=== PATIENT | male | born 1930 | race Caucasian/White ===

== ENCOUNTER → 2016-10-12 | Outpatient (CLI) | payer MEDICARE, BC ==
[~2016-10-12] MED LIST: ALPRAZOLAM0.5 MG PO; AMIODARONE PO; AMOXICILLIN 8751 TAB PO; ANUSOL HC CREAM30 GM TOP; ARTIFICIAL TEARS OP; ATENOLOL50 MG PO; CARDIZEM CD120 M1 PO; CARDIZEM CD240 MG PO; CARDIZEM CD300 MG PO; CATAPRES 0.1MG0.1 MG PO; CLONIDINE0.2 MG PO; COUMADIN5 MG PO; COZAAR50 MG PO; DEMADEX 20MG20 M1 PO; DILTIAZEM CD180 MG PO; DITROPAN 5MG TAB5 MG PO; EFFER-K20 MEQ PO; FLOMAX 0.40.4 MG/CAP PO; GENTAMICIN EYE D5 ML OP; HYDROCORTISO28.35 G1 TP; HYZAAR 12.5 MG-1 TA1 PO; IMDUR30 MG PO; ISOSORBIDE MONO30 MG PO; K-DUR 10 MEQ T10 MEQ PO; LOSARTAN POTASS1 TA2 PO; METOLAZONE5 MG PO; MULTIPLE VITAMI1 CAP PO; NEXICLON X0.09 MG/ML; NITROSTAT0.4 MG/TAB SL; NORCO 325 MG-51 TAB PO; NORVASC 5MG5 MG/TAB PO; PERCOCET 325 MG1 TA2 PO; POTASSIUM CH2 MEQ/ML PO; POTASSIUM20 MEQ PO; PREDNISONE10 M1 PO; PREDNISONE10 MG PO; PRINVIL PO; PROTONIX20 M1 PO; Patient's Own Medication OP; RESTASIS 0.4 M0.4 M1 OU; ST. JOSEPH81 M2 PO; TEARS NATURALE15 M1 OU; TEARS-ARTIFICIA15 ML OU; TENORMIN50 M1 PO; TORSEMIDE20 MG PO; ZESTRIL20 MG PO; ZOCOR10 MG PO; ZOFRAN4 M1 SL; ZOVIRAX 800MG800 MG PO; [UNRECOGNIZED DRUG - OTHER] TP
== END ==
LOC: LAB 12:56
DX: I10 Essential (primary) hypertension (principal); I50.23 Acute on chronic systolic (congestive) heart failure

== ENCOUNTER → 2016-10-27 | Outpatient (CLI) | payer MEDICARE, BC | LOC: LAB 14:25 | DX: Z51.81 Encounter for therapeutic drug level monitoring (principal); Z79.01 Long term (current) use of anticoagulants; I48.0 Paroxysmal atrial fibrillation ==

== ENCOUNTER → 2016-11-11 | Outpatient (CLI) | payer MEDICARE, BC | LOC: LAB 09:53 | DX: I48.91 Unspecified atrial fibrillation (principal); I10 Essential (primary) hypertension; I50.23 Acute on chronic systolic (congestive) heart failure ==

== ENCOUNTER → 2016-11-22 | Outpatient (CLI) | payer MEDICARE, BC | LOC: LAB 09:42 | DX: Z51.81 Encounter for therapeutic drug level monitoring (principal); Z79.01 Long term (current) use of anticoagulants; I48.0 Paroxysmal atrial fibrillation ==

== ENCOUNTER → 2016-11-24 | Outpatient (CLI) | payer MEDICARE, BC | LOC: LAB 15:54 | DX: I48.0 Paroxysmal atrial fibrillation (principal); I50.23 Acute on chronic systolic (congestive) heart failure ==

== ENCOUNTER → 2016-12-01 | Outpatient (CLI) | payer MEDICARE, BC | LOC: LAB 10:27 | DX: I50.23 Acute on chronic systolic (congestive) heart failure (principal); I10 Essential (primary) hypertension ==

== ENCOUNTER → 2016-12-08 | Outpatient (CLI) | payer MEDICARE, BC | LOC: LAB 09:57 | DX: I50.23 Acute on chronic systolic (congestive) heart failure (principal); I10 Essential (primary) hypertension ==

== ENCOUNTER → 2016-12-22 | Outpatient (CLI) | payer MEDICARE, BC | LOC: LAB 14:05 | DX: I50.23 Acute on chronic systolic (congestive) heart failure (principal); I10 Essential (primary) hypertension ==

== ENCOUNTER → 2017-01-06 | Outpatient (CLI) | payer MEDICARE, BC | LOC: LAB 10:44 | DX: I50.23 Acute on chronic systolic (congestive) heart failure (principal); I10 Essential (primary) hypertension ==

== ENCOUNTER → 2017-02-14 | Outpatient (CLI) | payer MEDICARE, BC ==
[2016-09-08 23:59] VITALS: BP 166/98
== END ==
LOC: RAD 13:49
DX: M25.572 Pain in left ankle and joints of left foot (principal); M10.9 Gout, unspecified; N18.9 Chronic kidney disease, unspecified

== ENCOUNTER → 2017-05-26 | Outpatient (CLI) | payer MEDICARE, BC ==
[2016-09-08 23:59] VITALS: BP 166/98
== END ==
LOC: LAB 12:50
DX: I48.91 Unspecified atrial fibrillation (principal); R20.2 Paresthesia of skin; M25.572 Pain in left ankle and joints of left foot; M10.9 Gout, unspecified; B35.3 Tinea pedis

== ENCOUNTER → 2017-06-09 | Outpatient (CLI) | payer MEDICARE, BC ==
[2016-09-08 23:59] VITALS: BP 166/98
== END ==
LOC: RAD 15:00
DX: M25.572 Pain in left ankle and joints of left foot (principal); M25.472 Effusion, left ankle; M85.872 Other specified disorders of bone density and structure, left ankle and foot; M24.072 Loose body in left ankle

== ENCOUNTER 2017-06-14 08:48 | Emergency (ER) | payer MEDICARE, BC ==
[~2017-06-14 08:48] MED LIST changes: -GENTAMICIN EYE D5 ML OP; -PREDNISONE10 MG PO; -TENORMIN50 M1 PO; -[UNRECOGNIZED DRUG - OTHER] TP
[2017-06-14] MEDS ORDERED: [UNRECOGNIZED DRUG - OTHER] TP (09:31)
[2017-06-14] MEDS ORDERED: PREDNISONE10 MG PO (09:34)
[2017-06-14 10:14] VITALS: BP 184/120
[2017-06-14] MEDS ORDERED: TENORMIN50 M1 PO (10:15)
[2017-06-14] MEDS ORDERED: GENTAMICIN EYE D5 ML OP (10:15)
== END 2017-06-14 10:29 | disposition home or self-care (01) ==
LOC: ED 08:48
DX: I11.0 Hypertensive heart disease with heart failure (principal); I50.9 Heart failure, unspecified; H10.9 Unspecified conjunctivitis; I25.10 Atherosclerotic heart disease of native coronary artery without angina pectoris; Z87.891 Personal history of nicotine dependence; I48.91 Unspecified atrial fibrillation; Z79.01 Long term (current) use of anticoagulants; D64.9 Anemia, unspecified; M10.9 Gout, unspecified; K21.9 Gastro-esophageal reflux disease without esophagitis; G47.33 Obstructive sleep apnea (adult) (pediatric); R27.0 Ataxia, unspecified

== ENCOUNTER → 2017-06-22 | Outpatient (CLI) | payer MEDICARE, BC ==
[2017-06-14 10:14] VITALS: BP 184/120
[~2017-06-22] MED LIST changes: +GENTAMICIN EYE D5 ML OP; +PREDNISONE10 MG PO; +TENORMIN50 M1 PO; +[UNRECOGNIZED DRUG - OTHER] TP
== END ==
LOC: LAB 10:12
DX: M10.472 Other secondary gout, left ankle and foot (principal); B35.3 Tinea pedis; I48.0 Paroxysmal atrial fibrillation

== ENCOUNTER → 2017-07-07 | Outpatient (CLI) | payer MEDICARE, BC ==
[2017-06-14 10:14] VITALS: BP 184/120
== END ==
LOC: LAB 12:58
DX: I10 Essential (primary) hypertension (principal)

== ENCOUNTER → 2017-08-17 | Outpatient (CLI) | payer MEDICARE, BC ==
[2017-08-17 14:36] LABS: EOS # 0.1 (0.04-0.40); EOS % 1.5 % (0.0-4.0); HEMATOCRIT 48.4 % (42.0-52.0); HEMOGLOBIN 15.5 g/dL (13.5-18.0); MEAN CELL VOLUME 99 fl (78-100); MEAN CORPUSCULAR HEMOGLOBIN 32 pg (27-31); MEAN CORPUSCULAR HGB CONC 32 g/dL (33-37); MEAN PLATELET VOLUME 11.2 fl (7.4-10.4); MONO # 0.5 (0.20-0.80); NEU # 6.2 (1.40-6.50); PLATELET COUNT 168 K/mm3 (130-400); RED CELL DISTRIBUTION WIDTH 16.2 % (11.5-14.5); WHITE BLOOD COUNT 7.9 K/mm3 (4.8-10.8)
[2017-08-17 14:49] LABS: BUN/CREATININE RATIO 21.1 (6.0-26.0); CALCIUM 9.9 mg/dL (8.4-10.2); POTASSIUM 4.8 mmol/L (3.6-5.0)
== END ==
LOC: RAD 09:45
PROVIDERS: Internal Medicine Cardiovascular Disease
DX: I51.7 Cardiomegaly (principal); Z95.0 Presence of cardiac pacemaker

== ENCOUNTER 2017-09-30 15:17 | Emergency (ER) | payer MEDICARE, BC ==
[~2017-09-30] VITALS: Wt 103.0 kg
[~2017-09-30 15:17] MED LIST changes: +COUMADIN 5MG5 MG/TAB PO; -COUMADIN5 MG PO; +DEMADEX10 M1 PO; +EFFER-K 25 MEQ25 MEQ PO; -EFFER-K20 MEQ PO; +GUMMI BEAR MUL1 EACH; +ISOSORBIDE30 MG PO; -MULTIPLE VITAMI1 CAP PO; +ZOCOR10 M1 PO; -ZOCOR10 MG PO
[2017-09-30 16:02] LABS: HEMATOCRIT 44.2 % (42.0-52.0); HEMOGLOBIN 14.4 g/dL (13.5-18.0); MEAN CELL VOLUME 100 fl (78-100); MEAN CORPUSCULAR HEMOGLOBIN 32 pg (27-31); MEAN CORPUSCULAR HGB CONC 33 g/dL (33-37); MEAN PLATELET VOLUME 10.7 fl (7.4-10.4); PLATELET COUNT 144 K/mm3 (130-400); RED BLOOD COUNT 4.44 M/mm3 (4.20-5.60); RED CELL DISTRIBUTION WIDTH 15.3 % (11.5-14.5); WHITE BLOOD COUNT 7.3 K/mm3 (4.8-10.8)
[2017-09-30] MEDS ORDERED: COUMADIN 22.5 MG/TAB PO (16:10)
[2017-09-30 16:12] LABS: ALBUMIN 3.5 g/dL (3.5-5.0); BUN/CREATININE RATIO 22.9 (6.0-26.0); CALCIUM 9.4 mg/dL (8.4-10.2); POTASSIUM 4.9 mmol/L (3.6-5.0); TOTAL BILIRUBIN 0.7 mg/dL (0.2-1.3); TOTAL PROTEIN 6.6 g/dL (6.3-8.2)
[2017-09-30] MEDS ORDERED: ZYLOPRIM 100MG100 MG PO (16:12)
[2017-09-30 16:14] LABS: LYMPHOCYTE 13 % (20-51); MONOCYTE 2 % (3-10); NEUTROPHILS 85 % (42-75)
[2017-09-30] MEDS ORDERED: MEDROL4 M1 PO (16:14)
[2017-09-30 16:18] LABS: PROTHROMBIN TIME 33.6 SECONDS (9.0-12.0)
[2017-09-30] MEDS ORDERED: SLOW-MAG 106 MG1 ECT (16:18)
[2017-09-30 16:20] LABS: TROPONIN-I < 0.03 ng/mL (0.00-0.06)
[2017-09-30] MEDS ORDERED: TENORMIN100 MG PO (16:20)
[2017-09-30] MEDS ORDERED: RESTASIS 0.4 M0.4 M1 OU (16:20)
[2017-09-30] MEDS ORDERED: ALDACTONE 25MG25 MG PO (16:21)
[2017-09-30] MEDS ORDERED: AMLODIPINE BESYL5 MG PO (16:22)
[2017-09-30] MEDS ORDERED: MUCINEX 60600 MG/TA1 PO (16:25)
[2017-09-30] MEDS ORDERED: LOPERAMIDE2 M2 PO (16:25)
[2017-09-30] MEDS ORDERED: SYSTANE 0.3-0.415 ML OU (16:26)
[2017-09-30] MEDS ORDERED: ROBITUSSIN10 ML/CU1 PO (16:26)
[2017-09-30] MEDS ORDERED: XANAX0.5 M1 PO (16:27)
[2017-09-30] MEDS ORDERED: TYLENOL WITH CO1 TA1 PO (16:27)
[2017-09-30] MEDS ORDERED: TESSALON PERLE100 M1 PO (16:43)
[2017-09-30 17:15] VITALS: BP 155/89
== END 2017-09-30 17:17 | disposition home or self-care (01) ==
LOC: ED 15:17
PROVIDERS: Family Medicine
DX: I50.9 Heart failure, unspecified (principal); K21.9 Gastro-esophageal reflux disease without esophagitis; I48.91 Unspecified atrial fibrillation; Z79.01 Long term (current) use of anticoagulants; Z79.82 Long term (current) use of aspirin; J44.9 Chronic obstructive pulmonary disease, unspecified; Z86.711 Personal history of pulmonary embolism; G47.30 Sleep apnea, unspecified; G91.2 (Idiopathic) normal pressure hydrocephalus; Z95.5 Presence of coronary angioplasty implant and graft; I25.10 Atherosclerotic heart disease of native coronary artery without angina pectoris; Z98.2 Presence of cerebrospinal fluid drainage device; Z87.891 Personal history of nicotine dependence; M10.9 Gout, unspecified; Z88.8 Allergy status to other drugs, medicaments and biological substances

== ENCOUNTER → 2017-10-05 | Outpatient (CLI) | payer MEDICARE, BC ==
[2017-09-30 17:15] VITALS: BP 155/89
[~2017-10-05] MED LIST changes: +ALDACTONE 25MG25 MG PO; +AMLODIPINE BESYL5 MG PO; +COUMADIN 22.5 MG/TAB PO; +LOPERAMIDE2 M2 PO; +MEDROL4 M1 PO; +MUCINEX 60600 MG/TA1 PO; +ROBITUSSIN10 ML/CU1 PO; +SLOW-MAG 106 MG1 ECT; +SYSTANE 0.3-0.415 ML OU; +TENORMIN100 MG PO; +TESSALON PERLE100 M1 PO; +TYLENOL WITH CO1 TA1 PO; +XANAX0.5 M1 PO; +ZYLOPRIM 100MG100 MG PO
== END ==
LOC: RAD 12:11
DX: R13.10 Dysphagia, unspecified (principal)
CPT/HCPCS: G8997-GN

== ENCOUNTER → 2017-10-06 | Outpatient (CLI) | payer MEDICARE, BC ==
[2017-09-30 17:15] VITALS: BP 155/89
== END ==
LOC: RAD 08:26
DX: R93.8 Abnormal findings on diagnostic imaging of other specified body structures (principal); R91.8 Other nonspecific abnormal finding of lung field; I71.2 Thoracic aortic aneurysm, without rupture
CPT/HCPCS: Q9967

== ENCOUNTER → 2017-10-12 | Outpatient (CLI) | payer MEDICARE, BC ==
[2017-09-30 17:15] VITALS: BP 155/89
[2017-10-12 17:30] LABS: HEMATOCRIT 45.4 % (42.0-52.0); HEMOGLOBIN 14.4 g/dL (13.5-18.0); MEAN PLATELET VOLUME 10.6 fl (7.4-10.4); RED BLOOD COUNT 4.54 M/mm3 (4.20-5.60); RED CELL DISTRIBUTION WIDTH 14.5 % (11.5-14.5); WHITE BLOOD COUNT 7.7 K/mm3 (4.8-10.8)
[2017-10-12 20:23] LABS: BUN/CREATININE RATIO 17.3 (6.0-26.0); CALCIUM 9.4 mg/dL (8.4-10.2); POTASSIUM 4.5 mmol/L (3.6-5.0)
[2017-10-12 21:19] LABS: URINE APPEARANCE CLEAR; URINE COLOR DARK YELLOW
[2017-10-12 21:20] LABS: PH-URINE 5.5 (5.0 - 8.0); URINE BILIRUBIN NEGATIVE (NEGATIVE); URINE BLOOD NEGATIVE (NEGATIVE); URINE GLUCOSE NEGATIVE (NEGATIVE); URINE KETONE TRACE (NEGATIVE); URINE LEUKOCYTE ESTERASE NEGATIVE (NEGATIVE); URINE NITRATE NEGATIVE (NEGATIVE); URINE PROTEIN(semi-quant) TRACE mg/dL (NEGATIVE); URINE UROBILINOGEN NORMAL (NORMAL)
[2017-10-12 21:21] LABS: URINE MUCUS PRESENT (NOT PRESENT)
== END ==
LOC: LAB 17:00
PROVIDERS: Nurse Practitioner Family
DX: R53.81 Other malaise (principal); R06.02 Shortness of breath; I50.9 Heart failure, unspecified; R35.0 Frequency of micturition; Z88.8 Allergy status to other drugs, medicaments and biological substances

== ENCOUNTER 2017-11-01 14:35 | Outpatient (RCR) | payer MEDICARE, BC | END 2017-11-01 15:30 | disposition home or self-care (01) | LOC: SPEECH 14:35 | DX: R13.10 Dysphagia, unspecified (principal) | CPT/HCPCS: G8997-GN ==

== ENCOUNTER → 2018-02-01 | Outpatient (CLI) | payer MEDICARE, BC ==
[2018-02-01 11:38] LABS: EOS # 0.1 (0.04-0.40); EOS % 1.1 % (0.0-4.0); HEMATOCRIT 48.1 % (42.0-52.0); HEMOGLOBIN 15.6 g/dL (13.5-18.0); LYMPH# 0.9 (1.50-4.00); MEAN CELL VOLUME 100 fl (78-100); MEAN CORPUSCULAR HEMOGLOBIN 32 pg (27-31); MEAN CORPUSCULAR HGB CONC 32 g/dL (33-37); MEAN PLATELET VOLUME 10.5 fl (7.4-10.4); MONO # 0.6 (0.20-0.80); NEU # 5.7 (1.40-6.50); PLATELET COUNT 160 K/mm3 (130-400); RED BLOOD COUNT 4.83 M/mm3 (4.20-5.60); RED CELL DISTRIBUTION WIDTH 14.8 % (11.5-14.5); WHITE BLOOD COUNT 7.3 K/mm3 (4.8-10.8)
[2018-02-01 11:58] LABS: ALBUMIN 3.5 g/dL (3.5-5.0); BUN/CREATININE RATIO 21.9 (6.0-26.0); CALCIUM 9.3 mg/dL (8.4-10.2); POTASSIUM 4.5 mmol/L (3.6-5.0); TOTAL BILIRUBIN 0.5 mg/dL (0.2-1.3); TOTAL PROTEIN 6.7 g/dL (6.3-8.2)
[2018-02-01 13:11] LABS: ERYTHROCYTE SEDIMENTATION RATE 5 mm/hr (0-20)
[2018-02-01 23:09] LABS: TESTOSTERONE 391 ng/dL (221-716)
== END ==
LOC: LAB 11:17
PROVIDERS: Internal Medicine
DX: M10.9 Gout, unspecified (principal); E78.2 Mixed hyperlipidemia; Z12.5 Encounter for screening for malignant neoplasm of prostate; I48.0 Paroxysmal atrial fibrillation; I10 Essential (primary) hypertension; N52.9 Male erectile dysfunction, unspecified; Z88.8 Allergy status to other drugs, medicaments and biological substances

== ENCOUNTER → 2018-02-27 | Outpatient (CLI) | payer MEDICARE, BC ==
[2018-02-27 08:58] LABS: BUN/CREATININE RATIO 17.7 (6.0-26.0); CALCIUM 8.8 mg/dL (8.4-10.2); POTASSIUM 4.2 mmol/L (3.6-5.0)
== END ==
LOC: LAB 08:32
PROVIDERS: Internal Medicine Cardiovascular Disease
DX: Z01.89 Encounter for other specified special examinations (principal)

== ENCOUNTER 2018-03-08 21:42 | Emergency (ER) | payer MEDICARE, BC ==
[~2018-03-08] VITALS: Ht 182.9 cm; Wt 100.0 kg
[2018-03-08 23:16] VITALS: BP 124/86
== END 2018-03-08 23:16 | disposition home or self-care (01) ==
LOC: ED 21:42
DX: S51.811A Laceration without foreign body of right forearm, initial encounter (principal); W22.8XXA Striking against or struck by other objects, initial encounter; Z23 Encounter for immunization; Y92.129 Unspecified place in nursing home as the place of occurrence of the external cause; I10 Essential (primary) hypertension; I25.10 Atherosclerotic heart disease of native coronary artery without angina pectoris; G91.9 Hydrocephalus, unspecified; Z98.2 Presence of cerebrospinal fluid drainage device; Z86.711 Personal history of pulmonary embolism; Z79.01 Long term (current) use of anticoagulants; Z79.82 Long term (current) use of aspirin; Z87.891 Personal history of nicotine dependence; I48.91 Unspecified atrial fibrillation
CPT/HCPCS: 90715

== ENCOUNTER → 2018-03-12 | Outpatient (CLI) | payer MEDICARE, BC ==
[2018-03-08 23:16] VITALS: BP 124/86
[2018-03-12 14:00] LABS: BUN/CREATININE RATIO 18.7 (6.0-26.0); CALCIUM 9.6 mg/dL (8.4-10.2); POTASSIUM 4.5 mmol/L (3.6-5.0)
[2018-03-12 14:41] LABS: PROTHROMBIN TIME 21.2 SECONDS (9.0-12.0)
== END ==
LOC: LAB 13:04
PROVIDERS: Internal Medicine
DX: Z51.81 Encounter for therapeutic drug level monitoring (principal); Z79.01 Long term (current) use of anticoagulants; R53.83 Other fatigue

== ENCOUNTER 2018-03-15 13:22 | Emergency (ER) | payer MEDICARE, BC ==
[~2018-03-15] VITALS: Ht 177.8 cm; Wt 99.1 kg
[2018-03-15 15:44] LABS: EOS # 0.1 (0.04-0.40); EOS % 1.2 % (0.0-4.0); HEMATOCRIT 48.6 % (42.0-52.0); HEMOGLOBIN 15.8 g/dL (13.5-18.0); MEAN CELL VOLUME 100 fl (78-100); MEAN CORPUSCULAR HEMOGLOBIN 33 pg (27-31); MEAN CORPUSCULAR HGB CONC 33 g/dL (33-37); MEAN PLATELET VOLUME 10.9 fl (7.4-10.4); MONO # 0.6 (0.20-0.80); NEU # 4.4 (1.40-6.50); PLATELET COUNT 164 K/mm3 (130-400); RED BLOOD COUNT 4.84 M/mm3 (4.20-5.60); RED CELL DISTRIBUTION WIDTH 14.9 % (11.5-14.5); WHITE BLOOD COUNT 5.8 K/mm3 (4.8-10.8)
[2018-03-15 15:47] LABS: ALBUMIN 3.8 g/dL (3.5-5.0); BUN/CREATININE RATIO 16.7 (6.0-26.0); POTASSIUM 4.7 mmol/L (3.6-5.0); TOTAL BILIRUBIN 0.7 mg/dL (0.2-1.3); TOTAL PROTEIN 7.2 g/dL (6.3-8.2)
[2018-03-15 15:50] LABS: LYMPH# 0.7 (1.50-4.00)
[2018-03-15 15:52] LABS: PARTIAL THROMBOPLASTIN TIME 30.2 SECONDS (21.0-32.0); PROTHROMBIN TIME 20.6 SECONDS (9.0-12.0)
[2018-03-15 17:18] VITALS: BP 115/84
== END 2018-03-15 17:05 | disposition home or self-care (01) ==
LOC: ED 13:22
PROVIDERS: Physician Assistant
DX: S09.90XA Unspecified injury of head, initial encounter (principal); J06.9 Acute upper respiratory infection, unspecified; S00.93XA Contusion of unspecified part of head, initial encounter; W19.XXXA Unspecified fall, initial encounter; G91.9 Hydrocephalus, unspecified; Z98.2 Presence of cerebrospinal fluid drainage device; I48.91 Unspecified atrial fibrillation; I25.10 Atherosclerotic heart disease of native coronary artery without angina pectoris; I10 Essential (primary) hypertension; G47.33 Obstructive sleep apnea (adult) (pediatric); Z79.01 Long term (current) use of anticoagulants; Z99.81 Dependence on supplemental oxygen; Z79.899 Other long term (current) drug therapy

== ENCOUNTER → 2018-05-04 | Outpatient (CLI) | payer MEDICARE, BC ==
[2018-05-04 12:16] LABS: BUN/CREATININE RATIO 23.2 (6.0-26.0)
== END ==
LOC: LAB 11:14
PROVIDERS: Internal Medicine
DX: M10.9 Gout, unspecified (principal); R53.83 Other fatigue; R06.02 Shortness of breath; I50.9 Heart failure, unspecified

== ENCOUNTER → 2018-05-28 | Outpatient (CLI) | payer MEDICARE, BC | LOC: RAD 10:04 | DX: M79.661 Pain in right lower leg (principal); R22.41 Localized swelling, mass and lump, right lower limb ==

== ENCOUNTER → 2018-07-10 | Outpatient (CLI) | payer MEDICARE, BC ==
[~2018-07-10] VITALS: Ht 177.8 cm; Wt 102.3 kg
[~2018-07-10] MED LIST changes: +IMODIUM 2MG CAPS2 MG PO; +LANSOPRAZOLE30 MG PO; +LOTRISONE CREAM15 G1 TOP; +MAGNESIUM OXID400 MG PO; +NATURAL TEARS OU; +ROBAFEN100 MG/51 PO; +RT ALBUTEROL CC18 GM IH
[2018-07-10 11:12] LABS: EOS # 0.1 (0.04-0.40); EOS % 1.9 % (0.0-4.0); HEMATOCRIT 43.9 % (42.0-52.0); HEMOGLOBIN 14.2 g/dL (13.5-18.0); LYMPH# 1.2 (1.50-4.00); MEAN CELL VOLUME 101 fl (78-100); MEAN CORPUSCULAR HEMOGLOBIN 33 pg (27-31); MEAN CORPUSCULAR HGB CONC 32 g/dL (33-37); MEAN PLATELET VOLUME 10.7 fl (7.4-10.4); MONO # 0.6 (0.20-0.80); NEU # 3.7 (1.40-6.50); PLATELET COUNT 191 K/mm3 (130-400); RED BLOOD COUNT 4.35 M/mm3 (4.20-5.60); RED CELL DISTRIBUTION WIDTH 14.1 % (11.5-14.5); WHITE BLOOD COUNT 5.7 K/mm3 (4.8-10.8)
[2018-07-10 11:33] LABS: CALCIUM 9.4 mg/dL (8.4-10.2)
[2018-07-10 11:42] VITALS: BP 119/84
[2018-07-10 12:24] LABS: ERYTHROCYTE SEDIMENTATION RATE 25 mm/hr (0-20)
== END ==
LOC: AMSURD 10:54
PROVIDERS: Nurse Practitioner Family
DX: I77.810 Thoracic aortic ectasia (principal); I50.9 Heart failure, unspecified; R60.0 Localized edema

== ENCOUNTER 2018-07-13 11:30 | Emergency (ER) | payer MEDICARE, BC ==
[~2018-07-13] VITALS: Ht 182.9 cm; Wt 96.8 kg
[2018-07-13 12:33] LABS: EOS % 0.4 % (0.0-4.0); HEMATOCRIT 47.9 % (42.0-52.0); HEMOGLOBIN 16.1 g/dL (13.5-18.0); LYMPH# 1.8 (1.50-4.00); MEAN CELL VOLUME 97 fl (78-100); MEAN CORPUSCULAR HEMOGLOBIN 33 pg (27-31); MEAN CORPUSCULAR HGB CONC 34 g/dL (33-37); MEAN PLATELET VOLUME 11.6 fl (7.4-10.4); MONO # 0.9 (0.20-0.80); NEU # 5.7 (1.40-6.50); PLATELET COUNT 232 K/mm3 (130-400); RED BLOOD COUNT 4.93 M/mm3 (4.20-5.60); RED CELL DISTRIBUTION WIDTH 14.1 % (11.5-14.5); WHITE BLOOD COUNT 8.4 K/mm3 (4.8-10.8)
[2018-07-13 12:39] LABS: ALBUMIN 4.2 g/dL (3.5-5.0); CALCIUM 9.5 mg/dL (8.4-10.2); POTASSIUM 3.3 mmol/L (3.6-5.0); TOTAL BILIRUBIN 0.9 mg/dL (0.2-1.3); TOTAL PROTEIN 7.3 g/dL (6.3-8.2)
[2018-07-13 12:45] LABS: TROPONIN-I < 0.03 ng/mL (0.00-0.06)
[2018-07-13] MEDS ORDERED: LEVAQUIN 5500 MG/TA1 PO (12:52)
[2018-07-13] MEDS ORDERED: COUMADIN 5MG5 MG/TAB PO (12:57)
[2018-07-13 15:20] LABS: PH-URINE 6.5 (5.0 - 8.0); URINE APPEARANCE CLEAR; URINE BILIRUBIN NEGATIVE (NEGATIVE); URINE BLOOD NEGATIVE (NEGATIVE); URINE COLOR YELLOW; URINE GLUCOSE NEGATIVE (NEGATIVE); URINE KETONE NEGATIVE (NEGATIVE); URINE LEUKOCYTE ESTERASE NEGATIVE (NEGATIVE); URINE NITRATE NEGATIVE (NEGATIVE); URINE PROTEIN(semi-quant) NEGATIVE (NEGATIVE); URINE UROBILINOGEN NORMAL (NORMAL); URINE WBC 0-1 /hpf (0-3)
[2018-07-13 16:00] VITALS: BP 103/71
== END 2018-07-13 16:00 | disposition short-term general hospital (02) ==
LOC: ED 11:30
PROVIDERS: Nurse Practitioner Primary Care
DX: I63.9 Cerebral infarction, unspecified (principal); G81.91 Hemiplegia, unspecified affecting right dominant side; R40.2412 Glasgow coma scale score 13-15, at arrival to emergency department; A41.9 Sepsis, unspecified organism; J18.9 Pneumonia, unspecified organism; I48.91 Unspecified atrial fibrillation; I11.0 Hypertensive heart disease with heart failure; I50.9 Heart failure, unspecified; G47.33 Obstructive sleep apnea (adult) (pediatric); E78.5 Hyperlipidemia, unspecified; I25.10 Atherosclerotic heart disease of native coronary artery without angina pectoris; G91.2 (Idiopathic) normal pressure hydrocephalus; Z95.0 Presence of cardiac pacemaker; Z98.2 Presence of cerebrospinal fluid drainage device; R26.9 Unspecified abnormalities of gait and mobility; Z79.899 Other long term (current) drug therapy; Z79.01 Long term (current) use of anticoagulants
CPT/HCPCS: J1644; J1956; J7030

== ENCOUNTER 2018-07-17 12:43 | Inpatient (IN) | payer MEDICARE, BC ==
[~2018-07-17] VITALS: Ht 177.8 cm; Wt 97.0 kg
[~2018-07-17 12:43] MED LIST changes: +LEVAQUIN 5500 MG/TA1 PO
[2018-07-17 16:13] VITALS: BP 122/80
[2018-07-17 17:00] VITALS: BP 112/78
[2018-07-17 18:58] VITALS: BP 112/78
[2018-07-17] MEDS ORDERED: DELTASONE20 M1 PO (22:10)
[2018-07-17] MEDS ORDERED: RESTASIS 0.4 M0.4 M1 OU (22:11)
[2018-07-17] MEDS ORDERED: MIRALAX17 GM PO (22:11)
[2018-07-17 23:18] VITALS: BP 128/74
[2018-07-18 06:21] VITALS: BP 101/67
[2018-07-18 06:31] VITALS: BP 147/90
[2018-07-18 06:50] LABS: HEMATOCRIT 43.1 % (42.0-52.0); HEMOGLOBIN 14.7 g/dL (13.5-18.0); MEAN CELL VOLUME 98 fl (78-100); MEAN CORPUSCULAR HEMOGLOBIN 33 pg (27-31); MEAN CORPUSCULAR HGB CONC 34 g/dL (33-37); MEAN PLATELET VOLUME 11.3 fl (7.4-10.4); PLATELET COUNT 187 K/mm3 (130-400); RED BLOOD COUNT 4.42 M/mm3 (4.20-5.60); RED CELL DISTRIBUTION WIDTH 13.7 % (11.5-14.5); WHITE BLOOD COUNT 9.6 K/mm3 (4.8-10.8)
[2018-07-18 07:01] LABS: PROTHROMBIN TIME 26.5 SECONDS (9.0-12.0)
[2018-07-18 07:20] LABS: CALCIUM 9.1 mg/dL (8.4-10.2); POTASSIUM 3.5 mmol/L (3.6-5.0)
[2018-07-18 07:23] LABS: BAND 1 % (0-10); LYMPHOCYTE 13 % (20-51); MONOCYTE 4 % (3-10); NEUTROPHILS 82 % (42-75)
[2018-07-18 18:44] VITALS: BP 110/72
[2018-07-19 06:36] VITALS: BP 153/85
[2018-07-19 16:35] VITALS: BP 145/95
[2018-07-19 18:21] VITALS: BP 120/79
[2018-07-20 06:00] VITALS: BP 154/93
[2018-07-20 06:28] VITALS: BP 154/93
[2018-07-20 11:53] LABS: ALBUMIN 3.4 g/dL (3.5-5.0); CALCIUM 8.9 mg/dL (8.4-10.2); POTASSIUM 4.5 mmol/L (3.6-5.0); TOTAL BILIRUBIN 0.6 mg/dL (0.2-1.3); TOTAL PROTEIN 6.4 g/dL (6.3-8.2)
[2018-07-20 18:03] VITALS: BP 146/95
[2018-07-21 06:00] VITALS: BP 143/93
[2018-07-21 06:02] VITALS: BP 143/93
[2018-07-21 18:12] VITALS: BP 127/84
[2018-07-22 06:00] VITALS: BP 134/87
[2018-07-22 06:25] VITALS: BP 134/87
[2018-07-22 18:09] VITALS: BP 112/81
[2018-07-23 06:19] VITALS: BP 156/100
[2018-07-23 07:08] VITALS: BP 156/100
[2018-07-23 18:27] VITALS: BP 104/71
[2018-07-24 06:02] VITALS: BP 169/109
[2018-07-24 06:22] VITALS: BP 168/109
[2018-07-24 08:31] LABS: EOS # 0.1 (0.04-0.40); EOS % 2.3 % (0.0-4.0); HEMATOCRIT 42.9 % (42.0-52.0); HEMOGLOBIN 14.5 g/dL (13.5-18.0); LYMPH# 1.4 (1.50-4.00); MEAN CELL VOLUME 98 fl (78-100); MEAN CORPUSCULAR HEMOGLOBIN 33 pg (27-31); MEAN CORPUSCULAR HGB CONC 34 g/dL (33-37); MEAN PLATELET VOLUME 10.9 fl (7.4-10.4); MONO # 0.5 (0.20-0.80); PLATELET COUNT 165 K/mm3 (130-400); RED BLOOD COUNT 4.39 M/mm3 (4.20-5.60); RED CELL DISTRIBUTION WIDTH 13.9 % (11.5-14.5); WHITE BLOOD COUNT 6.1 K/mm3 (4.8-10.8)
[2018-07-24 08:32] LABS: ALBUMIN 3.3 g/dL (3.5-5.0); CALCIUM 9.1 mg/dL (8.4-10.2); POTASSIUM 5.1 mmol/L (3.6-5.0); TOTAL BILIRUBIN 0.9 mg/dL (0.2-1.3); TOTAL PROTEIN 6.2 g/dL (6.3-8.2)
[2018-07-24 12:51] LABS: PROTHROMBIN TIME 48.4 SECONDS (9.0-12.0)
[2018-07-24 18:25] VITALS: BP 116/78
[2018-07-25 06:00] VITALS: BP 124/81
[2018-07-25 06:20] VITALS: BP 124/81
[2018-07-25 18:23] VITALS: BP 123/82
[2018-07-26 06:17] VITALS: BP 119/73
[2018-07-26 10:09] LABS: PROTHROMBIN TIME 28.8 SECONDS (9.0-12.0)
[2018-07-26 18:53] VITALS: BP 106/72
[2018-07-27 06:21] VITALS: BP 108/68
[2018-07-27 07:58] LABS: PROTHROMBIN TIME 22.9 SECONDS (9.0-12.0)
[2018-07-27 18:18] VITALS: BP 113/73
[2018-07-28 06:23] VITALS: BP 120/78; BP 99/63
[2018-07-28 18:12] VITALS: BP 135/84
[2018-07-29 05:50] VITALS: BP 92/62
[2018-07-29 06:37] VITALS: BP 122/72
[2018-07-29 18:51] VITALS: BP 123/84
[2018-07-30 06:14] VITALS: BP 114/77
[2018-07-30 06:15] VITALS: BP 114/77
[2018-07-30 18:22] VITALS: BP 119/87
[2018-07-31 06:18] VITALS: BP 132/89
[2018-07-31 06:21] VITALS: BP 132/89
[2018-07-31 09:37] LABS: EOS # 0.2 (0.04-0.40); EOS % 3.1 % (0.0-4.0); HEMATOCRIT 46.9 % (42.0-52.0); HEMOGLOBIN 14.8 g/dL (13.5-18.0); LYMPH# 0.8 (1.50-4.00); MEAN CELL VOLUME 100 fl (78-100); MEAN CORPUSCULAR HEMOGLOBIN 32 pg (27-31); MEAN CORPUSCULAR HGB CONC 32 g/dL (33-37); MEAN PLATELET VOLUME 10.7 fl (7.4-10.4); MONO # 0.3 (0.20-0.80); NEU # 4.5 (1.40-6.50); PLATELET COUNT 184 K/mm3 (130-400); RED CELL DISTRIBUTION WIDTH 14.1 % (11.5-14.5); WHITE BLOOD COUNT 5.9 K/mm3 (4.8-10.8)
[2018-07-31 09:43] LABS: ALBUMIN 3.6 g/dL (3.5-5.0); CALCIUM 9.4 mg/dL (8.4-10.2); POTASSIUM 4.5 mmol/L (3.6-5.0); TOTAL PROTEIN 6.7 g/dL (6.3-8.2)
[2018-07-31 10:02] LABS: PROTHROMBIN TIME 17.5 SECONDS (9.0-12.0)
[2018-07-31] MEDS ORDERED: COUMADIN 5MG5 MG/TAB PO (12:34)
[2018-07-31] MEDS ORDERED: ISOSORBIDE30 MG PO (12:35)
[2018-07-31] MEDS ORDERED: ATENOLOL50 MG PO (12:35)
[2018-07-31] MEDS ORDERED: ALDACTONE 25MG25 MG PO (12:36)
[2018-07-31] MEDS ORDERED: TYLENOL WITH CO1 TA1 PO (12:37)
[2018-07-31 13:34] VITALS: BP 132/89
== END 2018-07-31 14:05 | disposition home health service (06) | DRG 56 ==
LOC: MED/SURG 12:43
PROVIDERS: Nurse Practitioner Family; ADMIT Nurse Practitioner Primary Care
DX: I69.998 Other sequelae following unspecified cerebrovascular disease (principal); J18.9 Pneumonia, unspecified organism; I50.22 Chronic systolic (congestive) heart failure; N17.9 Acute kidney failure, unspecified; Z79.01 Long term (current) use of anticoagulants; I48.0 Paroxysmal atrial fibrillation; I25.10 Atherosclerotic heart disease of native coronary artery without angina pectoris; H91.90 Unspecified hearing loss, unspecified ear; H53.8 Other visual disturbances
CPT/HCPCS: J7512

== ENCOUNTER → 2018-08-07 | Outpatient (CLI) | payer MEDICARE, BC ==
[2018-07-31 13:34] VITALS: BP 132/89
[~2018-08-07] MED LIST changes: +DELTASONE20 M1 PO; +MIRALAX17 GM PO
[2018-08-07 13:24] LABS: CALCIUM 9.4 mg/dL (8.4-10.2); POTASSIUM 4.5 mmol/L (3.6-5.0)
[2018-08-07 13:29] LABS: PROTHROMBIN TIME 21.1 SECONDS (9.0-12.0)
== END ==
LOC: LAB 12:50
PROVIDERS: Internal Medicine
DX: I50.9 Heart failure, unspecified (principal); I48.91 Unspecified atrial fibrillation; Z79.01 Long term (current) use of anticoagulants

== ENCOUNTER → 2018-08-28 | Outpatient (CLI) | payer MEDICARE, BC ==
[2018-07-31 13:34] VITALS: BP 132/89
[2018-08-28 10:32] LABS: PROTHROMBIN TIME 15.5 SECONDS (9.0-12.0)
[2018-08-28 10:33] LABS: CALCIUM 9.6 mg/dL (8.4-10.2); POTASSIUM 4.1 mmol/L (3.6-5.0)
== END ==
LOC: LAB 10:00
PROVIDERS: Internal Medicine
DX: I48.91 Unspecified atrial fibrillation (principal); Z79.01 Long term (current) use of anticoagulants

== ENCOUNTER → 2018-09-04 | Outpatient (CLI) | payer MEDICARE, BC ==
[2018-09-04 14:32] LABS: PROTHROMBIN TIME 17.1 SECONDS (9.0-12.0)
== END ==
LOC: LAB 11:09
PROVIDERS: Internal Medicine
DX: I50.9 Heart failure, unspecified (principal); R06.02 Shortness of breath; R60.0 Localized edema; R55 Syncope and collapse

== ENCOUNTER 2018-09-09 16:59 | Emergency (ER) | payer MEDICARE, BC ==
[~2018-09-09] VITALS: Wt 103.2 kg
[2018-09-09] MEDS ORDERED: COREG12.5 M1 PO (17:15)
[2018-09-09] MEDS ORDERED: LANSOPRAZOLE30 MG PO (17:16)
[2018-09-09] MEDS ORDERED: ALLERCLEAR10 MG PO (17:16)
[2018-09-09] MEDS ORDERED: RESTASIS 0.4 M0.4 M1 OU (17:17)
[2018-09-09] MEDS ORDERED: SIMVASTATIN10 M1 PO (17:17)
[2018-09-09] MEDS ORDERED: MIRALAX17 GM PO (17:17)
[2018-09-09] MEDS ORDERED: METOLAZONE5 MG PO (17:17)
[2018-09-09] MEDS ORDERED: COUMADIN 4MG4 MG/TAB PO ×2 (17:18→17:19)
[2018-09-09] MEDS ORDERED: COUMADIN 6MG6 MG/TAB PO (17:19)
[2018-09-09 17:59] LABS: EOS # 0.3 (0.04-0.40); EOS % 4.7 % (0.0-4.0); HEMATOCRIT 44.4 % (42.0-52.0); HEMOGLOBIN 14.5 g/dL (13.5-18.0); LYMPH# 1.2 (1.50-4.00); MEAN CELL VOLUME 98 fl (78-100); MEAN CORPUSCULAR HEMOGLOBIN 32 pg (27-31); MEAN CORPUSCULAR HGB CONC 33 g/dL (33-37); MEAN PLATELET VOLUME 10.7 fl (7.4-10.4); MONO # 0.6 (0.20-0.80); NEU # 3.7 (1.40-6.50); PLATELET COUNT 192 K/mm3 (130-400); RED BLOOD COUNT 4.54 M/mm3 (4.20-5.60); RED CELL DISTRIBUTION WIDTH 14.5 % (11.5-14.5); WHITE BLOOD COUNT 5.8 K/mm3 (4.8-10.8)
[2018-09-09 18:11] LABS: CALCIUM 9.6 mg/dL (8.4-10.2); POTASSIUM 4.4 mmol/L (3.6-5.0); PROTHROMBIN TIME 18.9 SECONDS (9.0-12.0)
[2018-09-09 20:00] VITALS: BP 145/81
== END 2018-09-09 20:00 | disposition home or self-care (01) ==
LOC: ED 16:59
PROVIDERS: Family Medicine
DX: R27.0 Ataxia, unspecified (principal); Z91.81 History of falling; Z79.01 Long term (current) use of anticoagulants; Z79.899 Other long term (current) drug therapy; G91.2 (Idiopathic) normal pressure hydrocephalus; Z98.2 Presence of cerebrospinal fluid drainage device; Z95.0 Presence of cardiac pacemaker; M25.512 Pain in left shoulder; Z87.891 Personal history of nicotine dependence

== ENCOUNTER → 2018-09-13 | Outpatient (CLI) | payer MEDICARE, BC ==
[2018-09-09 20:00] VITALS: BP 145/81
[~2018-09-13] MED LIST changes: +ALLERCLEAR10 MG PO; +COREG12.5 M1 PO; +COUMADIN 4MG4 MG/TAB PO; +COUMADIN 6MG6 MG/TAB PO; +SIMVASTATIN10 M1 PO
[2018-09-13 13:50] LABS: PROTHROMBIN TIME 19.1 SECONDS (9.0-12.0)
== END ==
LOC: LAB 13:17
PROVIDERS: Internal Medicine
DX: I50.9 Heart failure, unspecified (principal); R06.02 Shortness of breath; R60.0 Localized edema; R55 Syncope and collapse

== ENCOUNTER → 2018-09-17 | Outpatient (CLI) | payer MEDICARE, BC ==
[~2018-09-17] VITALS: Ht 177.8 cm; Wt 101.8 kg
[2018-09-17 10:35] VITALS: BP 100/68
[2018-09-17 10:37] LABS: POTASSIUM 3.8 mmol/L (3.6-5.0); PROTHROMBIN TIME 15.4 SECONDS (9.0-12.0)
[2018-09-17 10:42] LABS: HEMATOCRIT 43.9 % (42.0-52.0); HEMOGLOBIN 14.1 g/dL (13.5-18.0); MEAN CELL VOLUME 97 fl (78-100); MEAN CORPUSCULAR HEMOGLOBIN 31 pg (27-31); MEAN CORPUSCULAR HGB CONC 32 g/dL (33-37); MEAN PLATELET VOLUME 10.8 fl (7.4-10.4); PLATELET COUNT 158 K/mm3 (130-400); RED BLOOD COUNT 4.52 M/mm3 (4.20-5.60); RED CELL DISTRIBUTION WIDTH 14.6 % (11.5-14.5); WHITE BLOOD COUNT 2.3 K/mm3 (4.8-10.8)
[2018-09-17 10:59] LABS: TROPONIN-I < 0.03 ng/mL (0.00-0.06)
[2018-09-17 11:05] LABS: BAND 1 % (0-10); LYMPHOCYTE 41 % (20-51); MONOCYTE 12 % (3-10); NEUTROPHILS 42 % (42-75)
== END ==
LOC: AMSURD 10:05
PROVIDERS: Urology
DX: R06.02 Shortness of breath (principal); Z95.0 Presence of cardiac pacemaker; Z98.2 Presence of cerebrospinal fluid drainage device

== ENCOUNTER → 2018-09-27 | Outpatient (CLI) | payer MEDICARE, BC ==
[2018-09-17 10:35] VITALS: BP 100/68
[2018-09-27 20:48] LABS: URINE APPEARANCE CLEAR; URINE BILIRUBIN NEGATIVE (NEGATIVE); URINE BLOOD NEGATIVE (NEGATIVE); URINE COLOR YELLOW; URINE GLUCOSE NEGATIVE (NEGATIVE); URINE KETONE NEGATIVE (NEGATIVE); URINE LEUKOCYTE ESTERASE NEGATIVE (NEGATIVE); URINE NITRATE NEGATIVE (NEGATIVE); URINE PROTEIN(semi-quant) TRACE mg/dL (NEGATIVE); URINE UROBILINOGEN NORMAL (NORMAL); URINE WBC 0-1 /hpf (0-3)
== END ==
LOC: LAB 18:25
PROVIDERS: Internal Medicine
DX: R41.0 Disorientation, unspecified (principal); R35.0 Frequency of micturition; R39.15 Urgency of urination

== ENCOUNTER → 2019-02-04 | Outpatient (CLI) | payer MEDICARE, BC ==
[2018-09-17 10:35] VITALS: BP 100/68
[2019-02-04 15:31] LABS: URINE APPEARANCE HAZY; URINE COLOR YELLOW
[2019-02-04 15:32] LABS: URINE BILIRUBIN NEGATIVE (NEGATIVE); URINE BLOOD NEGATIVE (NEGATIVE); URINE GLUCOSE NEGATIVE (NEGATIVE); URINE KETONE NEGATIVE (NEGATIVE); URINE LEUKOCYTE ESTERASE NEGATIVE (NEGATIVE); URINE NITRATE NEGATIVE (NEGATIVE); URINE PROTEIN(semi-quant) NEGATIVE (NEGATIVE); URINE UROBILINOGEN NORMAL (NORMAL)
== END ==
LOC: LAB 14:41
PROVIDERS: Nurse Practitioner
DX: R39.15 Urgency of urination (principal)

== ENCOUNTER → 2019-02-18 | Outpatient (CLI) | payer MEDICARE, BC ==
[2018-09-17 10:35] VITALS: BP 100/68
[2019-02-18 10:34] LABS: ALBUMIN 3.5 g/dL (3.4-4.8); CALCIUM 9.8 mg/dL (8.8-10.0); POTASSIUM 4.3 mmol/L (3.5-5.1); TOTAL BILIRUBIN 0.5 mg/dL (0.2-1.2); TOTAL PROTEIN 7.1 g/dL (6.2-8.1)
[2019-02-18 11:18] LABS: BAND 1 % (0-10); HEMATOCRIT 32.9 % (42.0-52.0); HEMOGLOBIN 11.6 g/dL (13.5-18.0); LYMPHOCYTE 7 % (20-51); MEAN CELL VOLUME 95 fl (78-100); MEAN CORPUSCULAR HEMOGLOBIN 34 pg (27-31); MEAN CORPUSCULAR HGB CONC 35 g/dL (33-37); MEAN PLATELET VOLUME 9.6 fl (7.4-10.4); MONOCYTE 3 % (3-10); NEUTROPHILS 84 % (42-75); PLATELET COUNT 226 K/mm3 (130-400); RED BLOOD COUNT 3.45 M/mm3 (4.20-5.60); RED CELL DISTRIBUTION WIDTH 18.2 % (11.5-14.5); WHITE BLOOD COUNT 10.9 K/mm3 (4.8-10.8)
[2019-02-18 11:19] LABS: METAMYELOCYTE 3 % (0-0); MYELOCYTE 1 % (0-0); NUCLEATED RED BLOOD CELL 1 (0-6)
[2019-02-18 11:44] LABS: ERYTHROCYTE SEDIMENTATION RATE 17 mm/hr (0-20)
== END ==
LOC: LAB 09:56
PROVIDERS: Internal Medicine
DX: I50.9 Heart failure, unspecified (principal); M10.9 Gout, unspecified; R20.2 Paresthesia of skin

== ENCOUNTER 2019-03-09 09:10 | Emergency (ER) | payer MEDICARE, BC ==
[~2019-03-09] VITALS: Wt 103.4 kg
[2019-03-09] MEDS ORDERED: MYRBETRIQ25 MG PO (09:30)
[2019-03-09] MEDS ORDERED: FLOMAX0.4 MG PO (09:35)
[2019-03-09 10:10] LABS: EOS # 0.1 (0.04-0.40); EOS % 1.8 % (0.0-4.0); HEMATOCRIT 45.4 % (42.0-52.0); HEMOGLOBIN 14.8 g/dL (13.5-18.0); MEAN CELL VOLUME 97 fl (78-100); MEAN CORPUSCULAR HEMOGLOBIN 32 pg (27-31); MEAN CORPUSCULAR HGB CONC 33 g/dL (33-37); MEAN PLATELET VOLUME 11.2 fl (7.4-10.4); MONO # 0.3 (0.20-0.80); NEU # 3.7 (1.40-6.50); PLATELET COUNT 155 K/mm3 (130-400); RED BLOOD COUNT 4.68 M/mm3 (4.20-5.60); RED CELL DISTRIBUTION WIDTH 14.5 % (11.5-14.5); WHITE BLOOD COUNT 5.1 K/mm3 (4.8-10.8)
[2019-03-09 10:27] LABS: ALBUMIN 3.6 g/dL (3.4-4.8); CALCIUM 9.9 mg/dL (8.3-10.5); CKMB ISOENZYME 1.3 ng/mL (0.0-3.5); POTASSIUM 4.1 mmol/L (3.5-5.1); TOTAL BILIRUBIN 0.7 mg/dL (0.2-1.2); TOTAL PROTEIN 6.7 g/dL (6.2-8.1)
[2019-03-09 10:59] LABS: PARTIAL THROMBOPLASTIN TIME 35.9 SECONDS (21.0-32.0); PROTHROMBIN TIME 20.5 SECONDS (9.0-12.0)
[2019-03-09 11:17] VITALS: BP 127/82
[2019-03-09] MEDS ORDERED: ALKA-SELTZER D1 EACH PO (11:25)
[2019-03-09] MEDS ORDERED: METOLAZONE5 MG PO (11:28)
[2019-03-09] MEDS ORDERED: MYRBETRIQ50 MG PO (11:29)
[2019-03-09] MEDS ORDERED: SIMVASTATIN10 M1 PO (11:30)
[2019-03-09] MEDS ORDERED: MIRALAX17 GM PO (11:30)
[2019-03-09] MEDS ORDERED: SYSTANE 0.3-0.1 EACH OP (11:32)
== END 2019-03-09 11:05 | disposition other institution (70) ==
LOC: ED 09:10 → MED/SURG 11:02 → ED 11:02
PROVIDERS: Physician Assistant
DX: I48.0 Paroxysmal atrial fibrillation (principal); I63.9 Cerebral infarction, unspecified; H53.9 Unspecified visual disturbance; R53.1 Weakness; I25.10 Atherosclerotic heart disease of native coronary artery without angina pectoris; I11.0 Hypertensive heart disease with heart failure; I50.9 Heart failure, unspecified; K21.9 Gastro-esophageal reflux disease without esophagitis; M10.9 Gout, unspecified; G47.33 Obstructive sleep apnea (adult) (pediatric); Z95.0 Presence of cardiac pacemaker; Z87.891 Personal history of nicotine dependence; Z98.2 Presence of cerebrospinal fluid drainage device; Z79.82 Long term (current) use of aspirin; Z79.01 Long term (current) use of anticoagulants

== ENCOUNTER 2019-03-09 11:04 | Inpatient (IN) | payer MEDICARE, BC ==
[~2019-03-09] VITALS: Ht 177.8 cm; Wt 101.0 kg
[~2019-03-09 11:04] MED LIST changes: +FLOMAX0.4 MG PO; +MYRBETRIQ25 MG PO
[2019-03-09 11:19] VITALS: BP 127/82
[2019-03-09 11:22] VITALS: BP 127/85
[2019-03-09 11:23] VITALS: BP 127/85
[2019-03-09] MEDS ORDERED: ALKA-SELTZER D1 EACH PO (11:25)
[2019-03-09] MEDS ORDERED: METOLAZONE5 MG PO (11:28)
[2019-03-09] MEDS ORDERED: MYRBETRIQ50 MG PO (11:29)
[2019-03-09] MEDS ORDERED: MIRALAX17 GM PO (11:30)
[2019-03-09] MEDS ORDERED: SIMVASTATIN10 M1 PO (11:30)
[2019-03-09] MEDS ORDERED: SYSTANE 0.3-0.1 EACH OP (11:32)
[2019-03-09 12:52] LABS: PH-URINE 6.5 (5.0 - 8.0); URINE APPEARANCE HAZY; URINE COLOR YELLOW
[2019-03-09 12:54] LABS: URINE BILIRUBIN NEGATIVE (NEGATIVE); URINE BLOOD NEGATIVE (NEGATIVE); URINE GLUCOSE NEGATIVE (NEGATIVE); URINE KETONE NEGATIVE (NEGATIVE); URINE LEUKOCYTE ESTERASE TRACE (NEGATIVE); URINE NITRATE NEGATIVE (NEGATIVE); URINE PROTEIN(semi-quant) NEGATIVE (NEGATIVE); URINE UROBILINOGEN NORMAL (NORMAL)
[2019-03-09 12:56] LABS: URINE MUCUS PRESENT (NOT PRESENT)
--- NOTE | 2019-03-09 13:06 | NUR ---
Pt admitted to room 302. Pt alert oriented and pleasant. Denies pain. Oriented to room. Pt denies pain. Denies SOB. Denies any Chest pressure. Pt does have some decreased vision in left eye and peripheral vision loss. Pt with general weakness worse on left side. Left strip roller weaker. Left arm ROM limited due to pain to left shoulder. Pt 2 assist pivot transfer with unsteady gait and weakness to left side. Pt does report chronic coughing after eating and drinking. PO challenge completed by Harriet VUONG. Pt tolerates water well. Pt reports he will call family to get them to bring in CPAP and eye drops. Pt updated on plan of care.
[2019-03-09 15:18] VITALS: BP 126/84
[2019-03-09 18:04] VITALS: BP 146/96
--- NOTE | 2019-03-09 19:15 | NUR ---
Report receiveed from Corrie JACOBS. Patient sittin up in recliner with feet elevated, watching TV. A/O x4. Denies pain. Neurochecks completed. 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 Pupils pinpoint, reactive to light. Assessment completed. Reviewed medications, Labs, orders for PT/OT/STJered Hammond Dopplar study. Denies questions, wants or needs.
--- NOTE | 2019-03-09 20:40 | NUR ---
Assisted to bed with 2:1 pivot transfer. Able to stand and bear weight and move feet to bed. Able to get own legs up in bed. Took scheduled HS medications whole in applesauce, swallows without difficulty. No coughing noted. Pericares provided. Desenex powder to groin, scrotum and coccyx. CPAP applied per home routine.
--- NOTE | 2019-03-09 22:14 | NUR ---
Assisted to BR after nebulizer tx. Required a rest of 10-15 min until she "caught her breath after tx to ambulate to BR. UA obtained, taken to lab by BOTTOM BLEACHER and placed in refridgerator. Walked back from BR and requested to "rest in the recliner a few minutes before getting into bed. Rested 5-10 Minutes then assisted to bed by RN. Oxygen in place at 2L/NC. Fan on in room.
--- NOTE | 2019-03-09 23:08 | NUR ---
Awakens easily for Neuro checks and V/S. Oriented x4. No change in neurological status noted. Denies pain. Denies need to void. Incontient pad dry. CPAP in place.
[2019-03-09 23:09] VITALS: BP 142/87
[2019-03-10] VITALS (8 sets, daily range): BP systolic 115–157; BP diastolic 77–104
--- NOTE | 2019-03-10 03:35 | NUR ---
Calls to have urinal emptied. Voids 500 ML of clear yellow urine. Denies pain. Remains A/O x4 with L sided weakness.
--- NOTE | 2019-03-10 05:17 | NUR ---
Awaken for AM medications and vital signs. Remains A/O with no change in neurological status. Rested well. AM medication taken whole in applesauce with no coughing noted.
--- NOTE | 2019-03-10 07:05 | NUR ---
Report to Rosalie JACOBS
[2019-03-10 07:21] LABS: EOS # 0.2 (0.04-0.40); EOS % 4.3 % (0.0-4.0); HEMATOCRIT 43.3 % (42.0-52.0); HEMOGLOBIN 14.1 g/dL (13.5-18.0); LYMPH# 1.1 (1.50-4.00); MEAN CELL VOLUME 97 fl (78-100); MEAN CORPUSCULAR HEMOGLOBIN 32 pg (27-31); MEAN CORPUSCULAR HGB CONC 33 g/dL (33-37); MEAN PLATELET VOLUME 10.6 fl (7.4-10.4); MONO # 0.4 (0.20-0.80); NEU # 2.2 (1.40-6.50); PLATELET COUNT 154 K/mm3 (130-400); RED BLOOD COUNT 4.47 M/mm3 (4.20-5.60); RED CELL DISTRIBUTION WIDTH 14.4 % (11.5-14.5)
[2019-03-10 07:43] LABS: CALCIUM 9.6 mg/dL (8.3-10.5); POTASSIUM 3.9 mmol/L (3.5-5.1)
[2019-03-10 07:57] LABS: PROTHROMBIN TIME 20.6 SECONDS (9.0-12.0)
--- NOTE | 2019-03-10 08:30 | NUR ---
Pt up in recliner at bedside. Pt a/o x 4 and pleasant. Pt concerned that has more left eye blurry vision he feels. Even with blinds closed and lights off both eye remain 1mm and unable to see reaction in either due to size. 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 They talked about his trying therapy for it. Pt has discomfort in left upper arm with mildly raising that arm. Denies need for pain med as doesn't hurt if doesn't use it. call light in reach and chair alarm on. Took breakfast well.
--- NOTE | 2019-03-10 09:30 | NUR ---
FAUSTINA Lake notified of left upper arm pain and of patient's wanting tuna salad sandwich for supper on his [facility] soft diet. Provider okays tuna salad sandwich. Will take off bread if bread is too dry. Pt watching TV. Denies needs at this time.
--- NOTE | 2019-03-10 10:15 | NUR ---
Pt wants to try to ambulate to the BR instead of transfer per w/c. Pt able to ambulate to BR using walker w/ CGA and wheelchair following him. - short steps but steady. Tolerated well. Assisted to shower chair and assisted with shower.
--- NOTE | 2019-03-10 13:57 | NUR ---
Discussed w/ pt after his nap to walk a little in halls or take a w/c ride to the outdoors for short time. Pt in agreement.
--- NOTE | 2019-03-10 13:59 | NUR ---
[facility] staff bring pt's arm band for tendonitis per request of FAUSTINA Lake and applied to left arm. Pt states this band does help.
--- NOTE | 2019-03-10 15:35 | NUR ---
Pt ambulated out into hallway by staff bathroom room 721 w/ walker and staff of 1. Gait steady. Sits in w/c and then taken outside by staff for some sunshine. No new neuro changes. FAUSTINA Lake in to visit pt earlier today and will continue to watch regarding neuro changes and blurry vision left eye.
--- NOTE | 2019-03-10 17:22 | NUR ---
Pt tolerating tuna on top of one slice of bread. Pt reported that he had trouble w/ pudding at lunch though. Already has ST ordered this admit.
--- NOTE | 2019-03-10 18:48 | NUR ---
Report to LYLA Okeefe.
--- NOTE | 2019-03-10 19:00 | NUR ---
Report received from Rosalie JACOBS. Up in recliner watching [employer] TV. A/O x4. Denies pain. Assessment completed. Neuro checks same as been since admit.
[2019-03-11 03:07] VITALS: BP 152/84
[2019-03-11 06:20] VITALS: BP 142/81
--- NOTE | 2019-03-11 07:19 | NUR ---
Report to Katie JACOBS.
[2019-03-11 11:38] VITALS: BP 161/95
[2019-03-11 15:00] VITALS: BP 166/100
[2019-03-11 18:25] VITALS: BP 152/93
[2019-03-11 22:42] VITALS: BP 135/93
[2019-03-12 03:20] VITALS: BP 116/79
[2019-03-12 06:14] VITALS: BP 154/91
[2019-03-12 07:08] LABS: PROTHROMBIN TIME 27.6 SECONDS (9.0-12.0)
[2019-03-12 10:56] VITALS: BP 107/71
--- NOTE | 2019-03-12 14:12 | NUR ---
Delilah Camacho APRN at bedside.
[2019-03-12 14:54] VITALS: BP 119/78
[2019-03-12] MEDS ORDERED: CLOPIDOGREL PO (15:08)
[2019-03-12] MEDS ORDERED: DESENEX2% TP (15:09)
== END 2019-03-12 14:52 | disposition swing bed (61) | DRG 65 ==
LOC: MED/SURG 11:04
PROVIDERS: ADMIT Physician Assistant
DX: I63.9 Cerebral infarction, unspecified (principal); I13.0 Hypertensive heart and chronic kidney disease with heart failure and stage 1 through stage 4 chronic kidney disease, or unspecified chronic kidney disease; I50.20 Unspecified systolic (congestive) heart failure; G91.2 (Idiopathic) normal pressure hydrocephalus; I69.354 Hemiplegia and hemiparesis following cerebral infarction affecting left non-dominant side; N18.9 Chronic kidney disease, unspecified; I25.10 Atherosclerotic heart disease of native coronary artery without angina pectoris; G47.33 Obstructive sleep apnea (adult) (pediatric); Z95.0 Presence of cardiac pacemaker; K21.9 Gastro-esophageal reflux disease without esophagitis; Z79.01 Long term (current) use of anticoagulants; Z79.82 Long term (current) use of aspirin; Z87.891 Personal history of nicotine dependence; M77.02 Medial epicondylitis, left elbow; I69.312 Visuospatial deficit and spatial neglect following cerebral infarction; I69.398 Other sequelae of cerebral infarction
CPT/HCPCS: J7512

== ENCOUNTER 2019-03-12 14:21 | Inpatient (IN) | payer MEDICARE, BC ==
[~2019-03-12] VITALS: Ht 180.3 cm; Wt 98.4 kg
[~2019-03-12 14:21] MED LIST changes: +ALKA-SELTZER D1 EACH PO; +MYRBETRIQ50 MG PO; +SYSTANE 0.3-0.1 EACH OP
[2019-03-12 15:05] VITALS: BP 119/78
[2019-03-12] MEDS ORDERED: CLOPIDOGREL PO (15:08)
[2019-03-12] MEDS ORDERED: DESENEX2% TP (15:09)
[2019-03-12 15:17] VITALS: BP 119/78
[2019-03-12 18:13] VITALS: BP 126/78
[2019-03-13 06:26] VITALS: BP 152/96
[2019-03-13 06:56] LABS: HEMATOCRIT 43.2 % (42.0-52.0); LYMPH# 1.1 (1.50-4.00); MEAN CELL VOLUME 96 fl (78-100); MEAN CORPUSCULAR HEMOGLOBIN 31 pg (27-31); MEAN CORPUSCULAR HGB CONC 32 g/dL (33-37); MEAN PLATELET VOLUME 10.9 fl (7.4-10.4); MONO # 0.3 (0.20-0.80); NEU # 4.5 (1.40-6.50); PLATELET COUNT 166 K/mm3 (130-400); RED BLOOD COUNT 4.52 M/mm3 (4.20-5.60); RED CELL DISTRIBUTION WIDTH 14.4 % (11.5-14.5); WHITE BLOOD COUNT 5.9 K/mm3 (4.8-10.8)
[2019-03-13 07:22] LABS: POTASSIUM 3.9 mmol/L (3.5-5.1)
[2019-03-13 18:19] VITALS: BP 133/79
[2019-03-14 06:22] VITALS: BP 134/87
[2019-03-14 18:08] VITALS: BP 132/81
[2019-03-15 06:09] VITALS: BP 113/76
[2019-03-15 07:50] VITALS: BP 145/88
[2019-03-15 09:46] LABS: EOS # 0.1 (0.04-0.40); EOS % 1.7 % (0.0-4.0); HEMATOCRIT 45.9 % (42.0-52.0); HEMOGLOBIN 14.9 g/dL (13.5-18.0); LYMPH# 0.9 (1.50-4.00); MEAN CELL VOLUME 95 fl (78-100); MEAN CORPUSCULAR HEMOGLOBIN 31 pg (27-31); MEAN CORPUSCULAR HGB CONC 33 g/dL (33-37); MEAN PLATELET VOLUME 10.6 fl (7.4-10.4); MONO # 0.3 (0.20-0.80); NEU # 3.3 (1.40-6.50); PLATELET COUNT 168 K/mm3 (130-400); RED BLOOD COUNT 4.83 M/mm3 (4.20-5.60); RED CELL DISTRIBUTION WIDTH 14.5 % (11.5-14.5); WHITE BLOOD COUNT 4.6 K/mm3 (4.8-10.8)
[2019-03-15 09:55] LABS: PROTHROMBIN TIME 20.7 SECONDS (9.0-12.0)
[2019-03-15 10:02] LABS: CALCIUM 9.2 mg/dL (8.3-10.5); POTASSIUM 3.9 mmol/L (3.5-5.1)
[2019-03-15 14:21] LABS: URINE APPEARANCE HAZY; URINE COLOR YELLOW
[2019-03-15 14:22] LABS: URINE BILIRUBIN NEGATIVE (NEGATIVE); URINE BLOOD NEGATIVE (NEGATIVE); URINE GLUCOSE NEGATIVE (NEGATIVE); URINE KETONE NEGATIVE (NEGATIVE); URINE LEUKOCYTE ESTERASE 1+ (NEGATIVE); URINE NITRATE NEGATIVE (NEGATIVE); URINE PROTEIN(semi-quant) NEGATIVE (NEGATIVE); URINE UROBILINOGEN NORMAL (NORMAL); URINE WBC 31-50 /hpf (0-3)
[2019-03-15 18:32] VITALS: BP 128/83
[2019-03-16 06:05] VITALS: BP 131/78
[2019-03-16 18:38] VITALS: BP 137/88
[2019-03-17 06:30] VITALS: BP 113/70
[2019-03-17 18:00] VITALS: BP 122/82
[2019-03-18 06:26] VITALS: BP 115/70
[2019-03-18 18:52] VITALS: BP 128/86
[2019-03-19 06:14] VITALS: BP 125/82
[2019-03-19 17:56] VITALS: BP 121/71
[2019-03-20 06:22] VITALS: BP 146/63
[2019-03-20] MEDS ORDERED: AMLODIPINE BESYL5 MG PO (10:04)
[2019-03-20] MEDS ORDERED: ESCITALOPRAM10 MG PO (10:05)
[2019-03-20] MEDS ORDERED: PAIN & FEVER R500 M1 PO (10:05)
[2019-03-20] MEDS ORDERED: ALPRAZOLAM0.25 MG PO (10:06)
[2019-03-20] MEDS ORDERED: CLOPIDOGREL PO (10:42)
[2019-03-20 11:45] VITALS: BP 146/63
[2019-03-20 13:31] LABS: URINE APPEARANCE CLEAR; URINE COLOR YELLOW
[2019-03-20 13:32] LABS: URINE BILIRUBIN NEGATIVE (NEGATIVE); URINE BLOOD NEGATIVE (NEGATIVE); URINE GLUCOSE NEGATIVE (NEGATIVE); URINE KETONE NEGATIVE (NEGATIVE); URINE NITRATE NEGATIVE (NEGATIVE); URINE PROTEIN(semi-quant) NEGATIVE (NEGATIVE); URINE UROBILINOGEN NORMAL (NORMAL)
[2019-03-20 13:35] LABS: URINE LEUKOCYTE ESTERASE NEGATIVE (NEGATIVE)
== END 2019-03-20 12:30 | disposition home health service (06) | DRG 948 ==
LOC: MED/SURG 14:21
PROVIDERS: Physician Assistant; ADMIT Nurse Practitioner Primary Care
DX: R53.81 Other malaise (principal); I69.354 Hemiplegia and hemiparesis following cerebral infarction affecting left non-dominant side; G91.2 (Idiopathic) normal pressure hydrocephalus; N39.0 Urinary tract infection, site not specified; H53.452 Other localized visual field defect, left eye; I69.398 Other sequelae of cerebral infarction; I50.9 Heart failure, unspecified; I48.0 Paroxysmal atrial fibrillation; N18.9 Chronic kidney disease, unspecified; I25.10 Atherosclerotic heart disease of native coronary artery without angina pectoris; Z79.01 Long term (current) use of anticoagulants
CPT/HCPCS: A4216; J0696; J7030

== ENCOUNTER → 2019-03-25 | Outpatient (CLI) | payer MEDICARE, BC ==
[2019-03-20 11:45] VITALS: BP 146/63
[~2019-03-25] MED LIST changes: +ALPRAZOLAM0.25 MG PO; +CLOPIDOGREL PO; +DESENEX2% TP; +ESCITALOPRAM10 MG PO; +PAIN & FEVER R500 M1 PO
[2019-03-25 11:18] LABS: CALCIUM 9.9 mg/dL (8.3-10.5); POTASSIUM 4.5 mmol/L (3.5-5.1)
== END ==
LOC: LAB 10:48
PROVIDERS: Physician Assistant
DX: Z01.89 Encounter for other specified special examinations (principal)

== ENCOUNTER → 2019-07-30 | Outpatient (CLI) | payer MEDICARE, BC ==
[2019-07-30 11:45] LABS: EOS # 0.1 (0.04-0.40); EOS % 2.7 % (0.0-4.0); HEMATOCRIT 43.2 % (42.0-52.0); HEMOGLOBIN 14.3 g/dL (13.5-18.0); LYMPH# 0.8 (1.50-4.00); MEAN CELL VOLUME 98 fl (78-100); MEAN CORPUSCULAR HEMOGLOBIN 33 pg (27-31); MEAN CORPUSCULAR HGB CONC 33 g/dL (33-37); MONO # 0.5 (0.20-0.80); PLATELET COUNT 186 K/mm3 (130-400); RED BLOOD COUNT 4.39 M/mm3 (4.20-5.60); RED CELL DISTRIBUTION WIDTH 13.9 % (11.5-14.5); WHITE BLOOD COUNT 4.4 K/mm3 (4.8-10.8)
[2019-07-30 12:08] LABS: ALBUMIN 3.8 g/dL (3.4-4.8); POTASSIUM 4.6 mmol/L (3.5-5.1)
[2019-07-30 12:09] LABS: CALCIUM 9.7 mg/dL (8.3-10.5)
[2019-07-30 12:10] LABS: TOTAL PROTEIN 7.1 g/dL (6.2-8.1)
[2019-07-30 12:12] LABS: TOTAL BILIRUBIN 0.7 mg/dL (0.2-1.2)
[2019-07-30 13:22] LABS: ERYTHROCYTE SEDIMENTATION RATE 28 mm/hr (0-20)
== END ==
LOC: LAB 11:25
PROVIDERS: Internal Medicine
DX: I50.23 Acute on chronic systolic (congestive) heart failure (principal); R73.02 Impaired glucose tolerance (oral); M1A.39X0 Chronic gout due to renal impairment, multiple sites, without tophus (tophi); R20.2 Paresthesia of skin

== ENCOUNTER 2019-08-28 15:54 | Observation (INO) | payer MEDICARE, BC ==
[~2019-08-28] VITALS: Ht 177.8 cm; Wt 97.1 kg
[~2019-08-28 15:54] MED LIST changes: +ST. JOSEPH ASPI81 M1 PO; -ST. JOSEPH81 M2 PO; -SYSTANE 0.3-0.1 EACH OP; +SYSTANE 0.3-0.1 EACH OU
[2019-08-28 16:25] LABS: HEMOGLOBIN 14.6 g/dL (13.5-18.0); MEAN CELL VOLUME 98 fl (78-100); MEAN CORPUSCULAR HEMOGLOBIN 32 pg (27-31); MEAN CORPUSCULAR HGB CONC 32 g/dL (33-37); MEAN PLATELET VOLUME 10.2 fl (7.4-10.4); PLATELET COUNT 185 K/mm3 (130-400); RED BLOOD COUNT 4.58 M/mm3 (4.20-5.60); RED CELL DISTRIBUTION WIDTH 13.9 % (11.5-14.5); WHITE BLOOD COUNT 4.5 K/mm3 (4.8-10.8)
[2019-08-28] MEDS ORDERED: AMLODIPINE BES2.5 MG PO (16:28)
[2019-08-28 16:29] LABS: ALBUMIN 3.9 g/dL (3.4-4.8)
[2019-08-28] MEDS ORDERED: AMOXICILLIN AND1 TA2 PO (16:29)
[2019-08-28 16:31] LABS: CALCIUM 9.5 mg/dL (8.3-10.5)
[2019-08-28] MEDS ORDERED: LEXAPRO 10MG10 MG PO (16:31)
[2019-08-28] MEDS ORDERED: CLOPIDOGREL PO (16:31)
[2019-08-28 16:32] LABS: TOTAL PROTEIN 7.8 g/dL (6.2-8.1)
[2019-08-28] MEDS ORDERED: FLONASE ALLERG9.9 ML NS (16:32)
[2019-08-28] MEDS ORDERED: ATROVENT NASAL15 ML NS (16:33)
[2019-08-28 16:34] LABS: LYMPHOCYTE 22 % (20-51); MONOCYTE 15 % (3-10); NEUTROPHILS 58 % (42-75); TOTAL BILIRUBIN 0.6 mg/dL (0.2-1.2)
[2019-08-28] MEDS ORDERED: ALDACTONE 25MG25 MG PO (16:47)
[2019-08-28] MEDS ORDERED: TART CHERRY E1000 MG PO (16:48)
[2019-08-28] MEDS ORDERED: GOOD NEIGHBOR500 M2 PO (16:52)
[2019-08-28] MEDS ORDERED: LIDOCAINE1 EACH TOP (16:54)
[2019-08-28] MEDS ORDERED: VIRTUSSIN A/C118 ML PO (16:55)
[2019-08-28 17:40] LABS: PROTHROMBIN TIME 21.3 SECONDS (9.0-12.0)
[2019-08-28 18:35] LABS: URINE APPEARANCE CLEAR; URINE BILIRUBIN NEGATIVE (NEGATIVE); URINE BLOOD NEGATIVE (NEGATIVE); URINE COLOR YELLOW; URINE GLUCOSE NEGATIVE (NEGATIVE); URINE KETONE NEGATIVE (NEGATIVE); URINE LEUKOCYTE ESTERASE NEGATIVE (NEGATIVE); URINE NITRATE NEGATIVE (NEGATIVE); URINE PROTEIN(semi-quant) NEGATIVE (NEGATIVE); URINE UROBILINOGEN NORMAL (NORMAL)
[2019-08-28 18:36] LABS: URINE MUCUS PRESENT (NOT PRESENT)
[2019-08-28 18:52] VITALS: BP 143/96
[2019-08-28 19:10] VITALS: BP 143/96
[2019-08-28 22:00] VITALS: BP 125/72
[2019-08-29 02:53] VITALS: BP 111/93
[2019-08-29 06:17] LABS: EOS # 0.2 (0.04-0.40); EOS % 4.1 % (0.0-4.0); HEMATOCRIT 43.8 % (42.0-52.0); HEMOGLOBIN 14.6 g/dL (13.5-18.0); MEAN CELL VOLUME 97 fl (78-100); MEAN CORPUSCULAR HEMOGLOBIN 32 pg (27-31); MEAN CORPUSCULAR HGB CONC 33 g/dL (33-37); MEAN PLATELET VOLUME 10.2 fl (7.4-10.4); MONO # 0.6 (0.20-0.80); NEU # 3.3 (1.40-6.50); PLATELET COUNT 191 K/mm3 (130-400); RED BLOOD COUNT 4.52 M/mm3 (4.20-5.60); RED CELL DISTRIBUTION WIDTH 13.8 % (11.5-14.5); WHITE BLOOD COUNT 5.2 K/mm3 (4.8-10.8)
[2019-08-29 06:22] LABS: POTASSIUM 3.3 mmol/L (3.5-5.1)
[2019-08-29 06:23] LABS: CALCIUM 9.6 mg/dL (8.3-10.5)
[2019-08-29 06:37] VITALS: BP 126/74
[2019-08-29 10:47] VITALS: BP 147/81
[2019-08-29 14:48] VITALS: BP 125/86
[2019-08-29 18:37] VITALS: BP 151/98
[2019-08-29 22:59] VITALS: BP 131/89
[2019-08-30 02:59] VITALS: BP 143/78
[2019-08-30 05:51] LABS: HEMATOCRIT 43.4 % (42.0-52.0); HEMOGLOBIN 14.6 g/dL (13.5-18.0); MEAN CELL VOLUME 95 fl (78-100); MEAN CORPUSCULAR HEMOGLOBIN 32 pg (27-31); MEAN CORPUSCULAR HGB CONC 34 g/dL (33-37); MEAN PLATELET VOLUME 10.3 fl (7.4-10.4); MONO # 0.1 (0.20-0.80); NEU # 3.2 (1.40-6.50); PLATELET COUNT 200 K/mm3 (130-400); RED BLOOD COUNT 4.55 M/mm3 (4.20-5.60); RED CELL DISTRIBUTION WIDTH 13.5 % (11.5-14.5)
[2019-08-30 05:52] LABS: LYMPH# 0.7 (1.50-4.00)
[2019-08-30 06:25] VITALS: BP 126/72
[2019-08-30 06:36] LABS: POTASSIUM 3.8 mmol/L (3.5-5.1)
[2019-08-30 06:37] LABS: CALCIUM 9.5 mg/dL (8.3-10.5)
[2019-08-30] MEDS ORDERED: IPRATROPIUM BROM3 M1 IH (10:58)
[2019-08-30] MEDS ORDERED: PREDNISONE20 M1 PO (10:58)
[2019-08-30 11:13] VITALS: BP 113/71
[2019-08-30 11:44] LABS: PROTHROMBIN TIME 24.7 SECONDS (9.0-12.0)
== END 2019-08-30 15:00 | disposition home or self-care (01) ==
LOC: ED 15:54 → MED/SURG 17:50
PROVIDERS: Nurse Practitioner Primary Care; ADMIT Physician Assistant
DX: I11.0 Hypertensive heart disease with heart failure (principal); I50.9 Heart failure, unspecified; R13.10 Dysphagia, unspecified; R06.09 Other forms of dyspnea; J20.9 Acute bronchitis, unspecified; I48.91 Unspecified atrial fibrillation; M10.9 Gout, unspecified; I25.10 Atherosclerotic heart disease of native coronary artery without angina pectoris; G47.33 Obstructive sleep apnea (adult) (pediatric); K21.9 Gastro-esophageal reflux disease without esophagitis; Z79.82 Long term (current) use of aspirin; Z79.01 Long term (current) use of anticoagulants; Z79.51 Long term (current) use of inhaled steroids; Z88.8 Allergy status to other drugs, medicaments and biological substances; Z95.0 Presence of cardiac pacemaker; Z79.02 Long term (current) use of antithrombotics/antiplatelets; Z87.891 Personal history of nicotine dependence; Z86.73 Personal history of transient ischemic attack (TIA), and cerebral infarction without residual deficits
CPT/HCPCS: G0378; J1940; J7512

== ENCOUNTER → 2019-11-20 | Outpatient (CLI) | payer MEDICARE, BC ==
[~2019-11-20] MED LIST changes: +AMLODIPINE BES2.5 MG PO; +AMOXICILLIN AND1 TA2 PO; +ATROVENT NASAL15 ML NS; +FLONASE ALLERG9.9 ML NS; +GOOD NEIGHBOR500 M2 PO; +IPRATROPIUM BROM3 M1 IH; +LEXAPRO 10MG10 MG PO; +LIDOCAINE1 EACH TOP; +PREDNISONE20 M1 PO; +TART CHERRY E1000 MG PO; +VIRTUSSIN A/C118 ML PO
== END ==
LOC: RAD 09:54
DX: L97.529 Non-pressure chronic ulcer of other part of left foot with unspecified severity (principal)

== ENCOUNTER 2019-12-02 09:04 | Observation (INO) | payer MEDICARE, BC ==
[~2019-12-02] VITALS: Ht 177.8 cm; Wt 100.9 kg
[2019-12-02] MEDS ORDERED: ISOSORBIDE30 MG PO (09:40)
[2019-12-02 09:48] LABS: EOS # 0.1 (0.04-0.40); EOS % 1.9 % (0.0-4.0); HEMATOCRIT 42.2 % (42.0-52.0); HEMOGLOBIN 13.5 g/dL (13.5-18.0); MEAN CELL VOLUME 99 fl (78-100); MEAN CORPUSCULAR HEMOGLOBIN 32 pg (27-31); MEAN CORPUSCULAR HGB CONC 32 g/dL (33-37); MEAN PLATELET VOLUME 10.1 fl (7.4-10.4); MONO # 0.3 (0.20-0.80); NEU # 3.5 (1.40-6.50); PLATELET COUNT 168 K/mm3 (130-400); RED BLOOD COUNT 4.27 M/mm3 (4.20-5.60); RED CELL DISTRIBUTION WIDTH 14.6 % (11.5-14.5); WHITE BLOOD COUNT 4.7 K/mm3 (4.8-10.8)
[2019-12-02 09:56] LABS: ALBUMIN 3.4 g/dL (3.4-4.8); SODIUM 139 mmol/L (136-145)
[2019-12-02 09:57] LABS: PROTHROMBIN TIME 23.2 SECONDS (9.0-12.0)
[2019-12-02 09:58] LABS: CALCIUM 9.4 mg/dL (8.3-10.5)
[2019-12-02 09:59] LABS: GLUCOSE 161 mg/dL (75-110); TOTAL PROTEIN 6.5 g/dL (6.2-8.1)
[2019-12-02 10:00] LABS: CARBON DIOXIDE 25 mmol/L (23-31)
[2019-12-02 10:01] LABS: LYMPH# 0.7 (1.50-4.00); TOTAL BILIRUBIN 0.6 mg/dL (0.2-1.2)
[2019-12-02 10:04] LABS: AST-SGOT 12 U/L (5-34)
[2019-12-02 10:05] LABS: ALT/SGPT 8 U/L (0-55)
[2019-12-02 10:13] LABS: TROPONIN-I < 0.03 ng/mL (<0.030)
[2019-12-02 11:33] LABS: URINE APPEARANCE CLEAR; URINE BILIRUBIN NEGATIVE (NEGATIVE); URINE BLOOD NEGATIVE (NEGATIVE); URINE COLOR YELLOW; URINE GLUCOSE NEGATIVE (NEGATIVE); URINE KETONE NEGATIVE (NEGATIVE); URINE LEUKOCYTE ESTERASE NEGATIVE (NEGATIVE); URINE NITRATE NEGATIVE (NEGATIVE); URINE PROTEIN(semi-quant) TRACE mg/dL (NEGATIVE); URINE UROBILINOGEN NORMAL (NORMAL)
[2019-12-02 11:34] LABS: URINE MUCUS PRESENT (NOT PRESENT)
[2019-12-02 13:51] VITALS: BP 167/105
[2019-12-02 14:00] VITALS: BP 167/105
[2019-12-02 15:53] VITALS: BP 167/105
[2019-12-02 17:47] VITALS: BP 166/100
[2019-12-02 21:26] VITALS: BP 159/106
[2019-12-03 02:05] VITALS: BP 154/94
[2019-12-03 06:19] VITALS: BP 150/88
[2019-12-03 09:50] VITALS: BP 143/75
[2019-12-03 14:18] VITALS: BP 127/81
[2019-12-03 14:26] LABS: EOS # 0.1 (0.04-0.40); EOS % 1.4 % (0.0-4.0); HEMATOCRIT 43.7 % (42.0-52.0); MEAN CELL VOLUME 98 fl (78-100); MEAN CORPUSCULAR HEMOGLOBIN 32 pg (27-31); MEAN CORPUSCULAR HGB CONC 32 g/dL (33-37); MONO # 0.6 (0.20-0.80); NEU # 4.2 (1.40-6.50); PLATELET COUNT 191 K/mm3 (130-400); RED BLOOD COUNT 4.44 M/mm3 (4.20-5.60); RED CELL DISTRIBUTION WIDTH 14.6 % (11.5-14.5); WHITE BLOOD COUNT 5.9 K/mm3 (4.8-10.8)
[2019-12-03 14:37] LABS: POTASSIUM 4.3 mmol/L (3.5-5.1)
[2019-12-03 14:38] LABS: CALCIUM 9.4 mg/dL (8.3-10.5)
[2019-12-03 18:28] VITALS: BP 138/85
[2019-12-03 21:50] VITALS: BP 151/88
[2019-12-04 01:50] VITALS: BP 116/73
[2019-12-04 05:41] LABS: EOS # 0.1 (0.04-0.40); EOS % 2.3 % (0.0-4.0); HEMATOCRIT 40.5 % (42.0-52.0); HEMOGLOBIN 13.1 g/dL (13.5-18.0); MEAN CELL VOLUME 98 fl (78-100); MEAN CORPUSCULAR HEMOGLOBIN 32 pg (27-31); MEAN CORPUSCULAR HGB CONC 32 g/dL (33-37); MEAN PLATELET VOLUME 10.2 fl (7.4-10.4); MONO # 0.5 (0.20-0.80); NEU # 3.6 (1.40-6.50); PLATELET COUNT 171 K/mm3 (130-400); RED BLOOD COUNT 4.13 M/mm3 (4.20-5.60); RED CELL DISTRIBUTION WIDTH 14.4 % (11.5-14.5); WHITE BLOOD COUNT 5.3 K/mm3 (4.8-10.8)
[2019-12-04 06:02] LABS: POTASSIUM 3.7 mmol/L (3.5-5.1)
[2019-12-04 06:10] VITALS: BP 134/84
[2019-12-04 09:44] VITALS: BP 145/87
[2019-12-04] MEDS ORDERED: PREMIERPRO RX5 MG/GM OP (12:29)
[2019-12-04] MEDS ORDERED: CEPHALEXIN500 M2 PO (12:29)
[2019-12-04 13:34] VITALS: BP 127/88
== END 2019-12-04 14:48 | disposition home or self-care (01) ==
LOC: ED 09:04 → MED/SURG 12:18
PROVIDERS: Nurse Practitioner Family; ADMIT Nurse Practitioner Primary Care
DX: R53.1 Weakness (principal); I48.91 Unspecified atrial fibrillation; M10.9 Gout, unspecified; I11.0 Hypertensive heart disease with heart failure; I50.9 Heart failure, unspecified; K21.9 Gastro-esophageal reflux disease without esophagitis; I25.10 Atherosclerotic heart disease of native coronary artery without angina pectoris; H10.9 Unspecified conjunctivitis; G47.33 Obstructive sleep apnea (adult) (pediatric); Z86.73 Personal history of transient ischemic attack (TIA), and cerebral infarction without residual deficits; Z95.0 Presence of cardiac pacemaker; Z79.82 Long term (current) use of aspirin; Z79.01 Long term (current) use of anticoagulants; Z79.51 Long term (current) use of inhaled steroids; Z87.891 Personal history of nicotine dependence; Z88.8 Allergy status to other drugs, medicaments and biological substances; Z88.1 Allergy status to other antibiotic agents
CPT/HCPCS: G0378; J0696

== ENCOUNTER → 2019-12-10 | Outpatient (CLI) | payer MEDICARE, BC ==
[2019-12-04 13:34] VITALS: BP 127/88
[~2019-12-10] MED LIST changes: +CEPHALEXIN500 M2 PO; +PREMIERPRO RX5 MG/GM OP
[2019-12-11 00:10] LABS: TESTOSTERONE 305 ng/dL (221-716)
== END ==
LOC: LAB 09:45
PROVIDERS: Internal Medicine
DX: I11.0 Hypertensive heart disease with heart failure (principal); D64.9 Anemia, unspecified; I50.9 Heart failure, unspecified; M1A.39X0 Chronic gout due to renal impairment, multiple sites, without tophus (tophi); N25.9 Disorder resulting from impaired renal tubular function, unspecified; I48.91 Unspecified atrial fibrillation; K90.9 Intestinal malabsorption, unspecified; R20.2 Paresthesia of skin